=== PATIENT | female | born 1960 | race Caucasian/White ===

== ENCOUNTER 2017-02-18 07:43 | Day surgery (SDC) | payer MEDICARE, OTHER ==
[~2017-02-18] VITALS: Ht 152.4 cm; Wt 66.9 kg
[~2017-02-18 07:43] MED LIST: MTF1000T
[2017-02-18 08:46] VITALS: Ht 152.4 cm; Wt 66.9 kg
[2017-02-18] MEDS ORDERED: LIDOCAINE 2% (SDV) 5 ML INJ ONE (08:52)
[2017-02-18] MEDS ORDERED: PROPOFOL 40 ML ONE (08:52)
[2017-02-18 08:53] VITALS: BP 131/77; PULSE 82; RESP 24
[2017-02-18] MEDS ORDERED: BENA10TA48 PO (09:03)
[2017-02-18] MEDS ORDERED: METF500T PO (09:03)
[2017-02-18] MEDS ORDERED: MELO-110 PO (09:03)
[2017-02-18] MEDS ORDERED: TRAM50TA2 PO (09:04)
[2017-02-18] MEDS ORDERED: SENNA PO (09:05)
[2017-02-18] MEDS ORDERED: INSULIN SUBCUTANE (09:05)
[2017-02-18] MEDS ORDERED: GABAPENTIN PO (09:06)
[2017-02-18] MEDS ORDERED: PROPOFOL 20 ML ONE (09:30)
[2017-02-18 10:00] VITALS: BP 117/67; RESP 20
--- NOTE | 2017-02-18 10:21 | GILP ---
DATE OF PROCEDURE: NAME OF PROCEDURES: 1. Esophagogastroduodenoscopy and biopsy. 2. Colonoscopy. SURGEON: Phuong Oneal MD PREOPERATIVE DIAGNOSES: 1. Abdominal pain. 2. Change in the bowel habit. POSTOPERATIVE DIAGNOSES: 1. Gastritis with erosions. 2. Biopsy was positive for Helicobacter pylori infection. 3. Colonoscopy all the way to the cecum. 4. Internal hemorrhoids. 5. Poor prep, making the exam suboptimal. 6. No gross neoplasm was identified. INDICATION FOR THE PROCEDURE: Ms. Kendra Holguin is a 56-year-old female patient who had upper abd ominal pain not responding to therapy. The patient also had a change in the bowel habit. She never had screening colonoscopy. The procedures and possible complications were well explained to the patient. She understood and co nsented to the procedures. DESCRIPTION OF PROCEDURE: Under the influence of anesthesia, the gastroscope was carefully introduc ed into the esophagus and under direct vision it was advanced to the stomach and through the pylorus , into the duodenal bulb and descending duodenum. FINDINGS: ESOPHAGUS: The mucosa was normal. STOMACH: The patient had gastritis with erosions. Biopsy was positive for Helicobacter pylori infe ction. DUODENUM: Normal. The colonoscope was carefully introduced in the rectum and under direct vision it was advanced all t he way to the cecum. FINDINGS: The patient had a poor prep with some solid stool in the cecal area, as well as the right colon, making the exam somewhat suboptimal. The patient was noted to have internal hemorrhoids. N o gross neoplasm was identified. She tolerated the procedures very well and there was no complication from the procedures. At the en d of the procedures she was awake with stable vital signs and she was discharged home to the care of her family. IMPRESSION: 1. Gastritis with erosions. 2. Biopsy was positive for Helicobacter pylori infection. 3. Colonoscopy all the way to the cecum. 4. Poor prep, with some solid stool in the cecum and right colon, making the exam somewhat suboptim al. 5. Internal hemorrhoids. 6. No gross neoplasm was identified. PLAN: 1. Zantac 300 mg p.o. b.i.d. for 14 days. 2. Doxycycline 100 mg p.o. b.i.d. for 14 days. 3. Flagyl 500 mg p.o. b.i.d. for 14 days. 4. Pepto-Bismol 2 tablets p.o. q.i.d. for 14 days. Because of the poor prep and suboptimal nature of examination, recommend a repeat colonoscopy with b marni preparation in 2 years. Dictated By: PHUONG HOPKINS/PATRICIA Conf#: [id number] DID#: [id number]
--- NOTE | 2017-02-19 10:36 | CONS ---
DATE OF ADMISSION: 02/18/2017 DATE OF CONSULTATION: TYPE OF CONSULTATION: Preoperative gastroenterology. Dear Dr. Krishna: I thank you very much for this kind referral. HISTORY OF PRESENT ILLNESS: Ms. Kendra Holguin is a 56-year-old female patient who has been referr ed to me for further evaluation of abdominal pain and change in the bowel habit. The patient says s he has got epigastric pain as well as lower abdominal pain which are not responding to therapy. The re is no past history of peptic ulcer disease. The patient has been taking Nexium. She also compla ins of chronic heartburn. Her appetite has been poor, and she is losing weight. The patient has be en taking meloxicam for arthritis. There is no history of gallstones. She does not have any fever, chills or jaundice. There is no history of liver disease. The patient says she had an abdominal u ltrasound done and it was negative. The patient also complains of lower abdominal pain and change i n the bowel habit with constipation. There is no past history of colon neoplasm. The patient never had screening colonoscopy. She is hypertensive. She has diabetes. There is no history of heart d isease or lung problem. The patient has history of renal stones. She has arthritis. The patient a lso has got hyperlipidemia. SOCIAL HISTORY: She is a smoker. She denies alcohol abuse. FAMILY HISTORY: Negative for gastrointestinal tract neoplasm. ALLERGIES: THERE IS NO HISTORY OF SIGNIFICANT DRUG ALLERGY. MEDICATIONS: 1. Benazepril 10 mg p.o. 2. Metformin 500 mg p.o. b.i.d. 3. Meloxicam 15 mg p.o. 4. Tramadol 50 mg p.o. 5. Senna 2 tablets p.o. PHYSICAL EXAMINATION: VITAL SIGNS: She is 5 feet tall, and she weighs 140 pounds. BMI is 27. Blood pressure is 134/82. HEART: Normal first and second heart sounds. LUNGS: Clear. ABDOMEN: Soft without any distention. Liver and spleen are not palpable. There are no masses. Th ere is no focal tenderness. Normal bowel sounds are heard. CENTRAL NERVOUS SYSTEM: Examination does not reveal any focal neurological deficit. IMPRESSION: 1. Upper abdominal pain and chronic heartburn not responding to therapy with Nexium. 2. The patient also complains of loss of appetite and weight loss. 3. Change in the bowel habit. 4. Lower abdominal pain. 5. The patient never had screening colonoscopy. 6. Hypertension. 7. Diabetes mellitus. 8. History of renal stones. 9. Arthritis. 10. Hyperlipidemia. 11. The patient had abdominal ultrasound, and according to her it was normal. 12. The patient is a smoker. 13. Elevated body mass index. PLAN: 1. Continue Nexium. 2. Endoscopic examination to rule out peptic ulcer disease and gastric neoplasm. 3. Screening colonoscopy. 4. Follow up with the primary MD for the management of elevated BMI and hypertension. 5. The patient was strongly advised to stop smoking. The procedures and possible complications are well explained to the patient. She understands and co nsents to the procedures. I thank you once again. With warmest personal regards, Dictated By: JENNY HOPKINS/PATRICIA Conf#: [id number] DID#: [id number]
== END 2017-02-18 13:41 | disposition home or self-care (01) ==
LOC: GIL 07:43
PROVIDERS: ATTEND Internal Medicine Gastroenterology
DX: R19.4 Change in bowel habit (principal); K29.60 Other gastritis without bleeding; K64.8 Other hemorrhoids; B96.81 Helicobacter pylori [H. pylori] as the cause of diseases classified elsewhere; I10 Essential (primary) hypertension; E11.9 Type 2 diabetes mellitus without complications; E78.5 Hyperlipidemia, unspecified; F17.200 Nicotine dependence, unspecified, uncomplicated
CPT/HCPCS: 82962; 87081